=== PATIENT | male | born 1930 | race Caucasian/White ===

== ENCOUNTER 2017-01-13 10:26 | Emergency (ER) | payer OTHER, MEDICARE ==
[~2017-01-13] VITALS: Ht 185.4 cm; Wt 82.1 kg
[~2017-01-13 10:26] MED LIST: ACETAMINOPHEN325 M1 PO; ASA5UEC PO; CARVEDILOL6.25 MG PO; CO Q-10100 MG PO; COREG PO; COZAAR 50 MG TA50 M1 PO; FISH OIL 1,0001 EAC5 PO; IBUPROFEN 800800 M1 PO; LIPITOR40 MG PO; LISINOPRIL20 MG PO; MEDROLDOSEPACK PO; MULTI VITAMIN1 EACH PO; NITROSTAT0.4 MG SUBLING; PACERONE 200 M200 M1 PO; PACERONE100 MG PO; PRADAXA150 MG PO; PRADAXA75 MG PO; SAW PALMETTO160 MG; VIAGRA50 MG PO; VIBRAMYCIN 100100 MG PO; VOLTAREN50 MG PO; ZETIA10 MG PO; ZOCOR80 MG PO
[2017-01-13] MEDS ORDERED: TUMERSAID TABL1 EACH PO (10:52)
[2017-01-13 11:22] LABS: URINE BILIRUBIN NEGATIVE (Negative); URINE BLOOD TRACE (Negative); URINE COLOR YELLOW; URINE GLUCOSE-RANDOM* NEGATIVE (Negative); URINE KETONES NEGATIVE (Negative); URINE LEUKOCYTES-REFLEX NEGATIVE (Negative); URINE PROTEIN (DIPSTICK) NEGATIVE (Negative); URINE UROBILINOGEN 0.2 E.U./dl (0.2-1.0)
[2017-01-13] MEDS ORDERED: DOXYCYCLINE 10100 MG PO (12:08)
[2017-01-13] MEDS ORDERED: HYDROCODONE-AP1 EAC6 PO (12:08)
== END 2017-01-13 12:19 | disposition home or self-care (01) ==
LOC: ER 10:26
PROVIDERS: Emergency Medicine
DX: N45.1 Epididymitis (principal); I11.9 Hypertensive heart disease without heart failure; I25.2 Old myocardial infarction; E78.5 Hyperlipidemia, unspecified; Z98.890 Other specified postprocedural states; Z95.5 Presence of coronary angioplasty implant and graft; Z95.1 Presence of aortocoronary bypass graft; Z88.5 Allergy status to narcotic agent; Z88.6 Allergy status to analgesic agent

== ENCOUNTER → 2019-11-22 | Outpatient (CLI) | payer OTHER, MEDICARE ==
[~2019-11-22] MED LIST changes: +DOXYCYCLINE 10100 MG PO; +HYDROCODONE-AP1 EAC6 PO; +MULTAQ 400 MG400 MG PO; +TUMERSAID TABL1 EACH PO
== END | disposition home or self-care (01) ==
LOC: SJCVC 10:56
PROVIDERS: ATTEND Internal Medicine Cardiovascular Disease
DX: I25.10 Atherosclerotic heart disease of native coronary artery without angina pectoris (principal); I48.91 Unspecified atrial fibrillation; R94.31 Abnormal electrocardiogram [ECG] [EKG]; I10 Essential (primary) hypertension; E78.00 Pure hypercholesterolemia, unspecified; Z79.899 Other long term (current) drug therapy; Z95.1 Presence of aortocoronary bypass graft

== ENCOUNTER 2020-01-08 14:29 | Inpatient (IN) | payer OTHER, MEDICARE ==
[~2020-01-08] VITALS: Ht 182.9 cm; Wt 86.2 kg
--- NOTE | ~2020-01-08 | EMS ---
[address] [address] EMS Patient Care Report Name: SHANNON CEDILLO Room #: REG CLIFFORD Quintana#: [id number] Admission: 01/08/20 Attend Phys: Discharge: Date of : 30 Report #: [id number] THIS REPORT FOR: //name// Report Transmitted: 01/08/2020 14:41 EMS Care Summary [facility] MED-ACT Incident [id number] @ 01/08/2020 13:48 Incident Location [address] [place] [address] Patient SHANNON CEDILLO Male, 89 Years 1930 Patient Address [address] [place] [address] Patient History Cardiac Arrythmia,Diabetes,Hypertension (HTN),Cardiac - Stent,Coronary Artery Bypass Graft (CABG),Atrial Fibrillation, Patient Allergies No known allergies, Patient Medications Losartan, Nitroglycerin, Aspirin, Atorvastatin, Pradaxa, Carvedilol, Chief Complaint CHEST PRESSURE Disposition Transported No Lights/[place] Dispatch Reason Chest Pain (Non-Traumatic) Transported To [facility] Narrative Upon arrival to the patient, the patient appeared to have no immediate life [address] [address] EMS Patient Care Report Name: SHANNON CEDILLO Room #: REG Mariano#: [id number] Admission: 01/08/20 Attend Phys: Discharge: Date of : 30 Report #: [id number] threats. The patient was noted to be CAOX4 with a GCS of 15. The patient was noted to be sitting upright on a computer chair in the living room of his apartment. The patient's apartment was noted to be clean and well kept. The patient stated that he has been having a pressure in his chest for the past thirty minutes. The patient also stated that he was feeling weak in his legs. The patient was noted to have taken four "baby aspirin" and on nitro tablet prior to EMS and FD arrival. The patient was placed on the media monitor with 12 lead acquisition. This revealed a reading of atrial fib with the occasional PVC noted. The patient's other vitals were also obtained. The patient's 12 lead revealed no acute changes. The patient wanted to go to [facility] for further care and evaluation. The patient was assisted to the stair chair to facilitate moving him out of the building. Once outside, the patient was moved to the cot, secured, and moved to the ambulance. En route to the ER, vitals were monitored. An IV was established in the patient's right distal wrist. The patient was give one dose of sublingual nitro spray. The patient's 12 lead was re-assessed after the nitro administration. This revealed no changes. The patient was transported with no problems and no other complaints. Report was called to the ER via radio. The patient was left in ER room six with report given to the RN. END OF REPORT. Initial Vitals @14:00P: 65,SpO2: 97, @14:01P: 60,SpO2: 96,[place] Suspected: false @14:15P: 62,R: 15,BP: 123/73,Pain: 4/10,GCS: 15,SpO2: 98,Revised Trauma: 12,[place] Suspected: false @13:58P: 61,R: 14,BP: 151/74,Pain: 4/10,GCS: 15,Glucose: 140,SpO2: 97,Revised Trauma: 12, @14:12P: 58,R: 15,BP: 132/66,Pain: 4/10,GCS: 15,SpO2: 98,Revised Trauma: 12, @14:13P: 58,SpO2: 98,[place] Suspected: false @14:22P: 62,R: 15,BP: 128/69,Pain: 2/10,GCS: 15,SpO2: 97,Revised Trauma: 12, Assessments @14:04MENTAL:Time Oriented,Person Oriented,Place Oriented,Event Oriented,SKIN:HEENT:Eyes: Left Pupil: 3-mm,Eyes: Right Pupil: 3-mm,Head/Face: No Abnormalities,Neck/Airway: No Abnormalities,LUNG SOUNDS:General: No Abnormalities,ABDOMEN:General: No Abnormalities,PELVIS//GI:EXTREMITIES:Left Arm: No Abnormalities,Right Arm: No Abnormalities,Left Leg: No Abnormalities,Right Leg: No Abnormalities,PULSE:Radial: 2+ Normal,NEURO:No Abnormalities, Impression Chest Pain / Discomfort [address] [address] EMS Patient Care Report Name: MAMADOUSHANNON MELIA Room #: REG CLIFFORD Quintana#: [id number] Admission: 01/08/20 Attend Phys: Discharge: Date of : 30 Report #: [id number] Procedures @14:1312-Lead ECGResponse: UnchangedSucceeded@14:0112-Lead ECGResponse: UnchangedSucceeded@14:09Saline Lock 10cc (20 ga) Site: Radial-RightResponse: UnchangedSucceeded@14:02ALS AssessmentResponse: UnchangedSucceeded@14:11Nitro [place] - 0.4 Milligrams (mg) - SublingualResponse: Unchanged@14:06StretcherResponse: Unchanged@14:03StairchairResponse: Unchanged@14:013-Lead ECGResponse: UnchangedSucceeded Timeline 13:45,Call Received 13:45,Psap Call 13:48,Dispatched 13:49,En Route 13:54,On Scene 13:57,At Patient 13:58,BP: 151/74 M,PULSE: 61,RR: 14 R,SPO2: 97 Ox,ETCO2: ,B,PAIN: 4,GCS: 15, 14:00,BP: / M,PULSE: 65,RR: R,SPO2: 97 Ox,ETCO2: ,BG: ,PAIN: ,GCS: , 14:01,3-Lead ECG,Response: UnchangedSucceeded, 14:01,12-Lead ECG,Response: UnchangedSucceeded, 14:01,BP: / M,PULSE: 60,RR: R,SPO2: 96 Ox,ETCO2: ,BG: ,PAIN: ,GCS: , 14:02,ALS Assessment,Response: UnchangedSucceeded, 14:03,Stairchair,Response: Unchanged 14:06,Stretcher,Response: Unchanged 14:09,Saline Lock 10cc 20 ga Site: Radial-Right,Response: UnchangedSucceeded, 14:11,Nitro [place] - 0.4 Milligrams (mg) - Sublingual,Response: Unchanged 14:12,BP: 132/66 M,PULSE: 58,RR: 15 R,SPO2: 98 Ox,ETCO2: ,BG: ,PAIN: 4,GCS: 15, 14:13,12-Lead ECG,Response: UnchangedSucceeded, 14:13,BP: / M,PULSE: 58,RR: R,SPO2: 98 Ox,ETCO2: ,BG: ,PAIN: ,GCS: , 14:13,Depart Scene 14:15,BP: 123/73 M,PULSE: 62,RR: 15 R,SPO2: 98 Ox,ETCO2: ,BG: ,PAIN: 4,GCS: 15, 14:22,BP: 128/69 M,PULSE: 62,RR: 15 R,SPO2: 97 Ox,ETCO2: ,BG: ,PAIN: 2,GCS: 15, 14:22,At Destination 14:39,Call Closed Disclaimer v1.1 Copyright 2020 [employer] This EMS Care Summary contains data elements from the applicable legal record (which may be displayed differently). It is designed to provide pertinent information for the following purposes: continuity of care, clinical quality, and state data reporting. The complete legal record is available to ED staff and administrators of the receiving hospital in [employer]'s Patient Tracker. All data is provided "as is."
[2020-01-08 14:29] VITALS: BP 132/57
[~2020-01-08 14:29] MED LIST changes: -MULTAQ 400 MG400 MG PO
[2020-01-08] MEDS ORDERED: MULTAQ 400 MG400 MG PO (14:38)
[2020-01-08 15:27] LABS: ABSOLUTE NEUTROPHILS 3.2 thou/uL (1.4-8.2); BASOPHILS 0.5 % (0.0-2.0); EOSINOPHILS 2.9 % (0.0-3.0); HEMATOCRIT 39.4 % (42.0-52.0); HEMOGLOBIN 13.3 gm/dL (14.0-18.0); MCHC 33.9 g/dL (28.0-37.0); MCV 91.4 fL (80.0-100.0); MONOCYTES 9.2 % (1.0-8.0); PLATELET COUNT 134 thou/uL (150-400); POLYS 66.4 % (36.0-66.0); RBC 4.31 mil/uL (4.50-6.00); RDW 14.2 % (10.5-14.5); WBC 4.8 thou/uL (4.0-11.0)
[2020-01-08 15:37] LABS: ANION GAP 8 mmol/L (7-16); BUN 21 mg/dL (7-18); CHLORIDE 106 mmol/L (98-107); CO2 25 mmol/L (21-32); CREATININE 1.3 mg/dL (0.7-1.3); GLUCOSE 131 mg/dL (74-106); POTASSIUM 4.3 mmol/L (3.5-5.1); SODIUM 139 mmol/L (136-145)
[2020-01-08 15:43] LABS: APTT 47.9 Seconds (24.5-32.8); INR 1.5; PROTIME 15.7 Seconds (9.3-11.4)
[2020-01-08 15:44] LABS: ALBUMIN 3.1 g/dL (3.4-5.0); MAGNESIUM 1.8 mg/dL (1.8-2.4); SGOT 21 U/L (15-37); SGPT 24 U/L (30-65); TOTAL BILIRUBIN 0.6 mg/dL (<0.1-1.0); TOTAL PROTEIN 6.3 g/dL (6.4-8.2); TROPONIN-I <0.06 ng/mL (<0.06)
[2020-01-08 19:19] VITALS: BP 145/67
[2020-01-08 20:31] VITALS: BP 136/70
[2020-01-08 21:12] VITALS: BP 155/84
[2020-01-09 04:33] VITALS: BP 131/53
--- NOTE | 2020-01-09 05:49 | NUR ---
ASSESSMENTS CHARTED, MEDS GIVEN CHARTED. PATIENT ARRIVED FROM ED AT 2100. WALKED FROM CART TO BATHROOM THEN BED. PATIENT SETTLED INTO BED AND ADMITTED INTO COMPUTER. SINUS NATIVIDAD DURING SHIFT. ON ROOM AIR. UP AT SELENA IN THE ROOM. DENIED PAIN. PLAN OF CARE IS TO WAIT FOR TROPONIN TEST TO RETURN AND VISIT BY DR. ISRAEL. FALL PRECAUTIONS IN PLACE DURING SHIFT.
[2020-01-09 06:05] LABS: HEMATOCRIT 38.4 % (42.0-52.0); MCH 31.3 pg (26.0-34.0); MCHC 33.9 g/dL (28.0-37.0); MCV 92.4 fL (80.0-100.0); RBC 4.15 mil/uL (4.50-6.00); RDW 14.7 % (10.5-14.5); WBC 4.5 thou/uL (4.0-11.0)
[2020-01-09 06:24] LABS: CHOLESTEROL 95 mg/dL (<200); HDL CHOLESTEROL 44 mg/dL (>40); LDL CHOLESTEROL 39 mg/dL (<100); TC:HDL 2.2 Ratio (Not establshd); TRIGLYCERIDE 64 mg/dL (<150); VLDL 13 mg/dL (<40)
[2020-01-09 06:27] LABS: SERUM ASSESSMENT Clear
[2020-01-09 06:31] LABS: ALBUMIN 2.9 g/dL (3.4-5.0); ANION GAP 5 mmol/L (7-16); BUN 21 mg/dL (7-18); CALCIUM 7.8 mg/dL (8.5-10.1); CHLORIDE 108 mmol/L (98-107); CO2 29 mmol/L (21-32); CREATININE 1.1 mg/dL (0.7-1.3); GLUCOSE 128 mg/dL (74-106); MAGNESIUM 1.8 mg/dL (1.8-2.4); POTASSIUM 4.3 mmol/L (3.5-5.1); SGOT 19 U/L (15-37); SGPT 21 U/L (30-65); SODIUM 142 mmol/L (136-145); TOTAL BILIRUBIN 0.4 mg/dL (<0.1-1.0); TOTAL PROTEIN 5.7 g/dL (6.4-8.2); TROPONIN-I <0.06 ng/mL (<0.06)
[2020-01-09 07:25] VITALS: BP 146/60
--- NOTE | 2020-01-09 09:33 | NUR ---
CONSULT FROM 9524 COMPLETED BY THIS LEARNING STRATEGIST. PT. WAS PLEASED WITH VISIT AND HOPES TO LEAVE TODAY.
[2020-01-09 11:10] VITALS: BP 132/59
[2020-01-09 12:34] VITALS: BP 132/59
--- NOTE | 2020-01-09 13:06 | NUR ---
ASSUMMED PT CARE AT APPROXIMATELY 0700. PT A&O X4. ASSESMENT CHARTED. FALL PRECAUTIONS IN PLACE. PT DENIES HAVING CHEST PAIN. PT DENIES HAVING ACUTE PAIN. PT DENIES HAVING SOB. PT DISCHARGING HOME C SELF CARE. PT RECEIVED DISCHARGE EDUCATION. PT STATED UNDERSTANDING AND DENIED HAVING FURTHER CONCERNS. IV DC. TELE DC. PT AMBULATES STEADY/INDEPENDENT. PT RECEIVED HOSPITAL TRANSPORT OFF UNIT. PT COMFORTABLE. PT DENIES HAVING FURTHER CONCERNS. VITAL SIGNS STABLE.
--- NOTE | 2020-01-09 14:08 | NUR ---
PATIENT D/C PRIOR TO OT EVAL ABLE TO BE INITIATED
--- NOTE | 2020-01-09 14:26 | EKG ---
[facility] [place] [address] [place] [address] ELECTROCARDIOGRAM REPORT Name: SHANNON CEDILLO Room #: 201-P DIS IN M.R.#: [id number] Admission: 01/08/20 Attend Phys: Charan Shirley MD Discharge: 01/09/20 Date of : 30 Report #: [id number] THIS REPORT FOR: cc: Dale Leyva MD, John H. MD Park, Jin S. MD ~ THIS REPORT FOR: //name// [facility] ED Test Date: 2020-01-08 Test Time: 14:29:56 Pat Name: SHANNON CEDILLO Department: Room: 201 Gender: M [facility] 1930 Requested By: King Umaña Order Number: [id number] MD: Errol Boss Measurements Intervals [place] Rate: 57 P: 19 WY: 60 QRS: 10 QRSD: 85 T: 58 QT: 689 QTc: 671 Interpretive Statements Sinus rhythm Short WY interval Inferior infarct, old Prolonged QT interval Compared to ECG 09/19/2015 08:55:53 Short WY interval now present Prolonged QT interval now present Sinus arrhythmia no longer present First degree AV block no longer present T-wave abnormality no longer present Myocardial infarct finding still present Electronically Signed On 01-09-2020 14:24:39 CDT by Errol Boss [email or web address] <ELECTRONICALLY SIGNED> By: Errol Boss MD 01/09/20 1424 142 1429 Errol Boss MD /EPI
--- NOTE | 2020-01-09 14:30 | EKG ---
[facility] [place] [address] ELECTROCARDIOGRAM REPORT Name: SHANNON CEDILLO Room #: 201- DIS IN M.R.#: [id number] Admission: 01/08/20 Attend Phys: Charan Shirley MD Discharge: 01/09/20 Date of : 30 Report #: [id number] THIS REPORT FOR: cc: Dale Leyva MD, John H. MD Park, Jin S. MD ~ THIS REPORT FOR: //name// [facility] Test Date: 2020-01-09 Test Time: 07:14:31 Pat Name: SHANNON CEDILLO Department: Room: 201 P Gender: M Accounting Manager: : 1930 Requested By: Charan Shirley Order Number: [id number] MD: Errol Boss Measurements Intervals [place] Rate: 51 P: 31 ND: 275 QRS: -16 QRSD: 88 T: QT: 600 QTc: 553 Interpretive Statements Sinus rhythm Multiple ventricular premature complexes Prolonged ND interval Inferior infarct, old Prolonged QT interval Compared to ECG 09/19/2015 08:55:53 Ventricular premature complex(es) now present Prolonged QT interval now present Sinus arrhythmia no longer present T-wave abnormality no longer present Myocardial infarct finding still present Electronically Signed On 01-09-2020 14:28:49 CDT by Errol Boss [email or web address] <ELECTRONICALLY SIGNED> By: Errol Boss MD 01/09/20 1428 3 3 Errol Boss MD /EPI
--- NOTE | 2020-01-10 08:08 | HC ---
[facility] [place] [address] [place] [address] CONSULTATION Name: SHANNON CEDILLO Room #: 201-P [facility] IN M.R.#: [id number] Admission: 01/08/20 Attend Phys: Charan Shirley MD Discharge: 01/09/20 Date of : 30 Report #: [id number] THIS REPORT FOR: cc: Dale Leyva MD, John H. MD Park, Jin S. MD ~ CC: Errol Shirley DATE OF SERVICE: 01/09/2020 INDICATION: Weakness. HISTORY OF PRESENT ILLNESS: This is an 89-year-old gentleman with a history of CAD, myocardial infarction, CABG, paroxysmal atrial flutter, hypertension, hypercholesterolemia, presenting with weakness and numbness. Over the weekend, he ate clam chowder and noted palpitations and elevated blood pressure readings. Thursday morning, he developed generalized weakness and numbness throughout his whole body. It was similar to his presentation when he had his myocardial infarction many years ago. He denies any recent fever, chills, cough, nausea or diarrhea. There is no history of PND or orthopnea. PAST MEDICAL HISTORY: History of MS with CABG. Last cardiac catheterization in 2011 revealed patent graft to the LAD and diagonal artery. The platinum left circumflex artery is patent. The RCA is occluded with collateral filling of the distal segment. History of paroxysmal atrial flutter, hypertension, hypercholesterolemia. ALLERGIES: INCLUDE THELMA INHIBITORS CAUSES HYPERKALEMIA AND BETA BLOCKERS CAUSE BRADYCARDIA. MEDICATIONS: At home include Multaq 400 b.i.d., Coreg low dose, Pradaxa 150 b.i.d., losartan, and atorvastatin. SOCIAL HISTORY: Denies tobacco use. FAMILY HISTORY: Negative for premature CAD. REVIEW OF SYSTEMS: A full 10-point review of systems performed. Only the pertinent positives and negatives described in the HPI. PHYSICAL EXAMINATION: VITAL SIGNS: Blood pressure is 140/60, heart rate 77 beats per minute. GENERAL APPEARANCE: This is an elderly, well-developed, well-nourished male in no acute distress. [facility] [address] [place] [address] CONSULTATION Name: SHANNON CEDILLO BELCHER Room #: 201-P DIS IN M.R.#: [id number] Admission: 01/08/20 Attend Phys: Charan Shirley MD Discharge: 01/09/20 Date of : 30 Report #: [id number] HEENT: Normocephalic, atraumatic. Oral mucosa moist. NECK: Supple. LUNGS: Clear to auscultation. CARDIAC: Regular rate and rhythm, S1, S2 positive. ABDOMEN: Soft, nontender. EXTREMITIES: Trace edema, no cyanosis. LABORATORY DATA: ECG reveals sinus rhythm, PVC, first degree AV block, inferior wall myocardial infarction. Serial troponins are negative x 3. White count is 4.5, hemoglobin 13.0. Sodium is 142, creatinine is 1.1. ASSESSMENT AND PLAN: 1. Coronary artery disease/coronary artery bypass graft. Three sets of troponin levels are negative. Symptoms do not appear to be cardiac related. His symptoms have resolved on its own. He is stable for discharge and follow up as an outpatient. 2. Paroxysmal atrial flutter, remains in sinus rhythm. Continue with Multaq and Pradaxa. 3. Hypertension, continue with his blood pressure medications. 4. Hypercholesterolemia, continue with statins. <ELECTRONICALLY SIGNED> By: Errol Boss MD 01/10/20 0808 1035 1153 Errol Boss MD /nt
== END 2020-01-09 13:13 | disposition home or self-care (01) | DRG 303 ==
LOC: ER 14:29 → 2N 15:54 → EROBS 15:54 → 2N 21:07
PROVIDERS: Emergency Medicine; ADMIT Internal Medicine
DX: I25.10 Atherosclerotic heart disease of native coronary artery without angina pectoris (principal); I48.92 Unspecified atrial flutter; R07.89 Other chest pain; I42.9 Cardiomyopathy, unspecified; I48.91 Unspecified atrial fibrillation; E78.00 Pure hypercholesterolemia, unspecified; I10 Essential (primary) hypertension; E78.5 Hyperlipidemia, unspecified; Z60.2 Problems related to living alone; I25.2 Old myocardial infarction; Z95.1 Presence of aortocoronary bypass graft; Z90.89 Acquired absence of other organs; Z79.891 Long term (current) use of opiate analgesic; Z79.899 Other long term (current) drug therapy; Z88.5 Allergy status to narcotic agent; Z88.8 Allergy status to other drugs, medicaments and biological substances; Z79.01 Long term (current) use of anticoagulants
CPT/HCPCS: 10081

== ENCOUNTER → 2020-01-18 | Outpatient (CLI) | payer OTHER, MEDICARE | LOC: SJCVCIMAG 08:16 | DX: I25.810 Atherosclerosis of coronary artery bypass graft(s) without angina pectoris (principal); I10 Essential (primary) hypertension; R60.9 Edema, unspecified; I48.91 Unspecified atrial fibrillation; Z95.1 Presence of aortocoronary bypass graft; Z79.899 Other long term (current) drug therapy ==